=== PATIENT | female | born 1960 | race African-American/Black ===

== ENCOUNTER 2020-09-27 22:42 | Emergency (ER) | payer OTHER, MEDICAID ==
[~2020-09-27] VITALS: Ht 172.7 cm; Wt 140.6 kg
[2020-09-27 23:12] VITALS: BP 122/79
== END 2020-09-28 02:04 | disposition home or self-care (01) ==
LOC: ER 22:42
DX: R51.9 Headache, unspecified (principal); R04.0 Epistaxis
CPT/HCPCS: 70450